=== PATIENT | male | born 2000 | race Caucasian/White ===

== ENCOUNTER 2020-03-30 15:03 | Emergency (ER) | payer MEDICAID ==
[~2020-03-30] VITALS: Ht 170.2 cm; Wt 68.5 kg
[2020-03-30 15:30] VITALS: BP 114/75; Ht 170.2 cm; Wt 68.5 kg
== END 2020-03-30 16:15 | disposition home or self-care (01) ==
LOC: ED 15:03
DX: B02.9 Zoster without complications (principal)